=== PATIENT | female | born 1990 ===

== ENCOUNTER 2019-12-07 04:05 | Inpatient (IN) | payer OTHER ==
[2019-12-07 17:29] VITALS: BMI 36.5
[2019-12-07] MEDS ORDERED: LACTATED RINGERS SOLUTION 1,000 ML IV SCH (18:15)
--- NOTE | 2019-12-07 18:41 | HP ---
Past Medical History - Admission History Source: Patient Limitations to Obtaining History: No Limitations - Past Medical History ...: 1 ...Para: 0 ...Term: 0 ...: 0 ...Spon : 0 ...Induced : 0 ...Living Children: 0 ...Multiple Gestation: 0 ...LMP: 03/09/19 ... Weeks Gestation by Dates: 39.0 ...EDC by Dates: 12/14/19 ...EDC by Sono: 12/10/19 - Past Surgical History Past Surgical History: Yes: None Hx Myomectomy: No Hx Transabdominal Cerclage: No - Smoking History Smoking history: Never smoked Have you smoked in the past 12 months: No - Alcohol/Substance Use Hx Alcohol Use: No - Social History History of Recent Travel: No Home Medications - Allergies Allergies/Adverse Reactions: Allergies Allergy/AdvReac Type Severity Reaction Status Date / Time No Known Allergies Allergy Verified 12/07/19 17:00 - Home Medications Home Medications: Ambulatory Orders Ascorbate Calcium [Vitamin C] 500 mg PO DAILY 12/07/19 Pnv No.95/Ferrous Fum/Folic AC [ Vitamin Tablet] 1 each PO DAILY 12/07/19 Review of Systems - Review of Systems Constitutional: reports: No Symptoms Cardiovascular: reports: No Symptoms Respiratory: reports: No Symptoms Gastrointestinal: reports: No Symptoms Genitourinary: reports: No Symptoms Physical Exam - Maternity Constitutional: Yes: Well Nourished Cardiovascular: Yes: WNL Lungs: Clear to auscultation - Abdominal Exam/OB Fundal Height: 39 Number of Fetuses: Single Presentation: Vertex Contractions: Yes Regularity: Irregular Intensity: Unaware Monitor Mode: External Heart Rate (range): 140 Category: I Accelerations: Uniform Decelerations: None - Vaginal Exam/OB Vaginal Bleeding: No Dilatation (cm): 0.5 Effacement (%): 40 Amniotic Membrane Status: Intact Presentation: Vertex/Position Station: -3 - Physical Exam Extremities: Yes: WNL Hemorrhage Risk Assessment - Risk Factors Medium Risk Factors: Yes: None High Risk Factors: Yes: None Risk Score: 1 Risk Level: Medium Risk Problem List - Problems (1) with 39 completed weeks gestation Code(s): Z3A.39 - 39 WEEKS GESTATION OF Assessment/Plan 29yo @39w0d, placental lakes in early , IOL r/o IUGR,GBS Negative Admit to labor and delivery IV-LR labs Informed consent including possibility of an blood transfusion.Patient understands, agrees an verbalized understanding cervidil anticipate vaginal delivery
[2019-12-07 18:55] LABS: BASO % 0.1 % (0-2.0); EOS % 2.2 % (0-4.5); HEMATOCRIT 36.3 % (32.4-45.2); HEMOGLOBIN 11.8 GM/dL (10.7-15.3); LYMPH % 15.5 % (8-40); MCH 25.9 pg (25.7-33.7); MCHC 32.6 g/dl (32.0-36.0); MEAN CELL VOLUME 79.4 fl (80-96); MEAN PLT VOLUME 7.4 fl (7.5-11.1); MONO % 8.7 % (3.8-10.2); NEUT % 73.5 % (42.8-82.8); PLATELET COUNT 348 K/MM3 (134-434); RBC 4.57 M/mm3 (3.60-5.2); RDW 16.7 % (11.6-15.6); WHITE BLOOD COUNT 9.7 K/mm3 (4.0-10.0)
[2019-12-07 19:03] LABS: INR 0.93 (0.83-1.09)
[2019-12-07 19:06] LABS: ACTIVATED PTT 26.1 SECONDS (25.2-36.5)
[2019-12-07 19:18] LABS: BLOOD UREA NITROGEN 12.7 mg/dL (7-18); CALCIUM 9.6 mg/dL (8.5-10.1); CREATININE 0.4 mg/dL (0.55-1.3); POTASSIUM 4.2 mmol/L (3.5-5.1)
[2019-12-07] MEDS ORDERED: DINOPROSTONE 10 MG VAGINAL SUPPOSITORY VG ONE (19:32)
[2019-12-07] MEDS: ELECTROLYTE-148 SOLN 1,000 ML IV SCH (22:00)
[2019-12-08] MEDS ORDERED: BUTORPHANOL TARTRATE 2 MG/ML VIAL ONE ×2 (00:03→20:34)
[2019-12-08 09:35] LABS: ALBUMIN 2.4 g/dl (3.4-5.0); BILIRUBIN,TOTAL 0.6 mg/dL (0.2-1); BLOOD UREA NITROGEN 8.2 mg/dL (7-18); CALCIUM 9.1 mg/dL (8.5-10.1); CREATININE 0.5 mg/dL (0.55-1.3); POTASSIUM 4.1 mmol/L (3.5-5.1)
[2019-12-08] MEDS ORDERED: DINOPROSTONE 10 MG VAGINAL SUPPOSITORY VG ONE (13:01)
--- NOTE | 2019-12-08 13:06 | PD.OB.PROG ---
Past Medical History - Primary Care Physician PCP:: Carlton Donald Documenting Provider Type: Laborist - Admission Chief Complaint: contractions History of Present Illness: 38 y/o admitted by [facility] yesterday for iol at 39 weeks due to suspected iugr History Source: Patient Limitations to Obtaining History: No Limitations - Nursing Documentation Maternal Triage Index: Maternal Triage Index ( Priority 5, Requesting MFTI) Hemorrhage Risk Assessment: Risk Level Low Risk High Level Risk Factors for None Hemorrhage Medium Level Risk Factors for None of the above Hemorrhage Low Level Risk Factors for No previous uterine incis,[place], Hemorrhage Four (4) or less previous,No known bleeding,No history of PPH Nursing Documentation Reviewed: Yes - Past Medical History ...: 1 ...Para: 0 ...Term: 0 ...: 0 ...Spon : 0 ...Induced : 0 ...Living Children: 0 ...Multiple Gestation: 0 ...LMP: 03/09/19 ... Weeks Gestation by Dates: 39.0 ...EDC by Dates: 12/14/19 ...EDC by Sono: 12/10/19 - Past Surgical History Past Surgical History: Yes: None - Smoking History Smoking history: Never smoked Have you smoked in the past 12 months: No - Alcohol/Substance Use Hx Alcohol Use: No - Social History History of Recent Travel: No Physical Exam - Obstetrical Vital Signs: Vital Signs Temperature 98.2 F 12/08/19 12:00 Pulse Rate 96 H 12/08/19 12:00 Respiratory Rate 18 12/08/19 12:00 Blood Pressure 107/72 12/08/19 12:00 O2 Sat by Pulse Oximetry (%) - Abdominal Exam/OB Number of Fetuses: Single Contractions: Yes Regularity: Irregular Intensity: Mild Heart Rate (range): 140 Category: I Accelerations: Uniform Decelerations: None - Vaginal Exam/OB Dilatation (cm): 1 Effacement (%): l/p - Labs Lab Results: CBC, BMP 12/07/19 18:10 12/08/19 08:01 Assessment/Plan cervical ripening request by PMD to place 2nd cervidil inserted at this time cont close monitoring sign out to MD conduit mechanic
[2019-12-08] MEDS ORDERED: PROMETHAZINE HCL 25 MG/1 ML VIAL ONE (20:34)
[2019-12-08] MEDS ORDERED: BUTORPHANOL TARTRATE 1 MG/ML VIAL IVPB ONE ×2 (20:45)
[2019-12-08] MEDS ORDERED: BUTORPHANOL TARTRATE 2 MG/ML VIAL IVPB ONE ×2 (20:45)
[2019-12-08] MEDS ORDERED: PROMETHAZINE HCL 25 MG/1 ML VIAL IVPB ONE (20:45)
[2019-12-08] MEDS: ELECTROLYTE-148 SOLN 1,000 ML IV SCH (22:45)
[2019-12-09] MEDS ORDERED: FENTANYL/BUPIVACAINE/NS/PF - PCEA - 50 ML DISP.SYRIN EP ONE ×3 (02:45→10:11)
[2019-12-09] MEDS ORDERED: BUPIVACAINE HCL/PF 0.25% (2.5MG/ML) 10 ML VIAL ONE (02:55)
--- NOTE | 2019-12-09 03:11 | PN ---
Progress Note (short form) - Note Progress Note: Full term gestation on cervidil induction VSS, afebrile EFM - Baseline 140/in, moderate variability, accelerations, no decelerations Tocos - q4 Pelvic 2cm/80%/-2/vertex. Spontaneous rupture of membranes. Plan - Full term gestation on cervidil ripening Anticipate vaginal delivery
[2019-12-09] MEDS: FENTANYL/BUPIVACAINE/NS/PF - PCEA - 50 ML DISP.SYRIN EP SCH (03:15)
[2019-12-09] MEDS ORDERED: OXYTOCIN 30 UNITS in 0.9% NS 30 UNIT/500 ML INFUS.BAG IVPB SCH (03:15)
[2019-12-09] MEDS ORDERED: NALOXONE HCL 0.4 MG/ML VIAL IVPUSH PRN (03:19)
--- NOTE | 2019-12-09 03:23 | PN ---
Progress Note (short form) - Note Progress Note: Patient complaining of lower abdominal pain VSS, afebrile EFM - Baseline 140/min, moderate variability, acceleration. no deceleration Tocos q3 Pelvic - 4cm/90%/-1/vertex Plan - full term gestation in labor Epidural analgesia performed Anticipate vaginal dilvery
[2019-12-09] MEDS ORDERED: OXYTOCIN 30 UNITS in 0.9% NS 30 UNIT/500 ML INFUS.BAG IVPB ONE (04:33)
[2019-12-09] MEDS ORDERED: PCA PUMP NR ONE (07:27)
[2019-12-09] MEDS ORDERED: OXYTOCIN 20 UNITS in 0.9% NS 20 UNIT/1,000 ML INFUS.BAG IV ONE ×2 (10:11→13:55)
--- NOTE | 2019-12-09 11:52 | PN ---
Progress Note (short form) - Note Progress Note: Patient comfortable on epidural analgesia Vss, afebrile EFM - Baseline 140/min, moderate variability, accelerations, no decelerations Tocos - q3 min Pelvic - 9cm/100%/0/vertex Plan - Full term gestation approaching second stage labor Anticipate vaginal delivery.
[2019-12-09] MEDS: OXYTOCIN 20 UNITS in 0.9% NS 20 UNIT/1,000 ML INFUS.BAG IV SCH ×2 (12:44→14:15)
[2019-12-09] MEDS ORDERED: CEFAZOLIN 2 GM/D5W 2 GM/50 ML ML IVPB ONE (12:54)
[2019-12-09] MEDS ORDERED: ceFAZolin 2 GRAM PREMIX BAG IVPB ONE (12:55)
[2019-12-09 13:24] LABS: CORD BASE EXCESS -7.1 mmol/L (0-2); CORD HCO3 19.8 mmHg (20-29); CORD PCO2 44.8 mmHg (30-78); CORD pH 7.264 (7.14-7.44)
[2019-12-09 13:27] LABS: CORD HCO3 23.7 mmHg (20-29); CORD PCO2 64.9 mmHg (30-78)
[2019-12-09] MEDS ORDERED: METHYLERGONOVINE MALEATE 0.2 MG/1 ML AMP IM PRN (13:41)
[2019-12-09] MEDS ORDERED: BENZOCAINE 28 GM HEMORRHOIDAL OINTMENT TP PRN (13:41)
[2019-12-09] MEDS ORDERED: BENZOCAINE 20% 57 GM BOTTLE TP PRN (13:41)
[2019-12-09] MEDS ORDERED: WITCH HAZEL 50% (TUCKS) 40 PAD/JAR PAD TP PRN (13:41)
--- NOTE | 2019-12-09 13:41 | PN ---
Delivery - Delivery Vaginal Delivery: Spontaneous Type of Anesthesia: Local, Epidural Episiotomy/Laceration: Right Mediolateral, 1st degree EBL (cc): 300 Delivery, Single - Stages of Labor Date 1st Stage Initiatied: 12/09/19 Time 1st Stage Initiated: 02:00 Date 2nd Stage Initiated: 12/09/19 Time 2nd Stage Initiated: 12:15 Date of Delivery: 12/09/19 Time of Delivery: 12:32 Time Placenta Delivered: 12:44 - Condition of Process Trainer/Religious Healer Present: No Infant Gender: Female Position: Left, OA Total Hours ROM (Hrs/Mins): 17hrs 14min - 1 Minute Total Score: 9 5 Minutes Total Score: 9 - [place] Feeding Plan Initial Plan: Elected not to breastfeed exclusively throughout hospitalization
[2019-12-09] MEDS ORDERED: IBUPROFEN 600 MG TABLET (FP) PO ONE (14:29)
[2019-12-09] MEDS ORDERED: ACETAMINOPHEN 325 MG TABLET (FP) ONE (14:29)
[2019-12-09] MEDS: ACETAMINOPHEN 325 MG TABLET (FP) PO PRN (14:30)
[2019-12-09] MEDS: IBUPROFEN 600 MG TABLET (FP) PO PRN (14:30)
[2019-12-10] MEDS: ACETAMINOPHEN 325 MG TABLET (FP) PO PRN ×2 (01:29→09:47)
[2019-12-10] MEDS: IBUPROFEN 600 MG TABLET (FP) PO PRN ×2 (01:30→09:47)
[2019-12-10 08:44] LABS: BASO % 0.1 % (0-2.0); EOS % 1.7 % (0-4.5); HEMOGLOBIN 9.8 GM/dL (10.7-15.3); LYMPH % 16.3 % (8-40); MCH 25.7 pg (25.7-33.7); MCHC 32.6 g/dl (32.0-36.0); MEAN CELL VOLUME 78.9 fl (80-96); MEAN PLT VOLUME 7.2 fl (7.5-11.1); MONO % 6.9 % (3.8-10.2); PLATELET COUNT 307 K/MM3 (134-434); RDW 16.8 % (11.6-15.6); WHITE BLOOD COUNT 13.9 K/mm3 (4.0-10.0)
[2019-12-10] MEDS: PRENATAL VITAMINS W/ FOLIC ACID TABLET (FP) PO SCH (09:46)
[2019-12-10] MEDS: DOCUSATE SODIUM 100 MG CAPSULE (FP) PO SCH (09:47)
[2019-12-10] MEDS: FENTANYL/BUPIVACAINE/NS/PF - PCEA - 50 ML DISP.SYRIN EP SCH (12:29)
--- NOTE | 2019-12-10 12:59 | PN ---
Post Progress Note Post Day: 1 Type of Delivery: Vital Signs: Vital Signs Temperature 97.6 F 12/10/19 10:00 Pulse Rate 105 H 12/10/19 10:00 Respiratory Rate 18 12/10/19 10:00 Blood Pressure 106/74 12/10/19 10:00 O2 Sat by Pulse Oximetry (%) 99 12/09/19 14:45 Breast Exam: Yes: Soft Uterus: Yes: Fundus Firm, Fundus below umbilicus, Non-tender Abdomen/GI: Yes: Abdomen soft, Tolerating PO Lochia: Yes: Rubra Lochia, amount: Small Extremities: Yes: Calves non-tender Perineum: Yes: Episiotomy Activity: Ambulating - Labs Labs: CBC WBC 13.9 K/mm3 (4.0-10.0) H 12/10/19 08:00 RBC 3.80 M/mm3 (3.60-5.2) 12/10/19 08:00 Hgb 9.8 GM/dL (10.7-15.3) L 12/10/19 08:00 Hct 30.0 % (32.4-45.2) L D 12/10/19 08:00 MCV 78.9 fl (80-96) L 12/10/19 08:00 MCH 25.7 pg (25.7-33.7) 12/10/19 08:00 MCHC 32.6 g/dl (32.0-36.0) 12/10/19 08:00 RDW 16.8 % (11.6-15.6) H 12/10/19 08:00 Plt Count 307 K/MM3 (134-434) 12/10/19 08:00 MPV 7.2 fl (7.5-11.1) L 12/10/19 08:00 Absolute Neuts (auto) 10.4 K/mm3 (1.5-8.0) H 12/10/19 08:00 Neutrophils % 75.0 % (42.8-82.8) 12/10/19 08:00 Lymphocytes % 16.3 % (8-40) 12/10/19 08:00 Monocytes % 6.9 % (3.8-10.2) 12/10/19 08:00 Eosinophils % 1.7 % (0-4.5) 12/10/19 08:00 Basophils % 0.1 % (0-2.0) 12/10/19 08:00 Nucleated RBC % 0 % (0-0) 12/10/19 08:00 Assessment/Plan S/P , ppd # 1, with no complaints Continue management.
[2019-12-10] MEDS: FERROUS SO4 325 MG TABLET (FP) PO SCH ×2 (15:02→21:42)
[2019-12-10] MEDS ORDERED: SENNOSIDES/DOCUSATE COMBO (SENNA PLUS) TABLET (UD) PO PRN (22:00)
--- NOTE | 2019-12-11 08:05 | PN ---
Post Progress Note Post Day: 2 Type of Delivery: Vital Signs: Vital Signs Temperature 98 F 12/10/19 22:00 Pulse Rate 104 H 12/10/19 22:00 Respiratory Rate 18 12/10/19 22:00 Blood Pressure 138/80 12/10/19 22:00 O2 Sat by Pulse Oximetry (%) 99 12/09/19 14:45 Breast Exam: Yes: Soft Uterus: Yes: Fundus Firm, Fundus below umbilicus, Non-tender Abdomen/GI: Yes: Abdomen soft, Tolerating PO Lochia: Yes: Rubra Lochia, amount: Small Extremities: Yes: Calves non-tender Perineum: Yes: Episiotomy Activity: Ambulating - Labs Labs: CBC WBC 13.9 K/mm3 (4.0-10.0) H 12/10/19 08:00 RBC 3.80 M/mm3 (3.60-5.2) 12/10/19 08:00 Hgb 9.8 GM/dL (10.7-15.3) L 12/10/19 08:00 Hct 30.0 % (32.4-45.2) L D 12/10/19 08:00 MCV 78.9 fl (80-96) L 12/10/19 08:00 MCH 25.7 pg (25.7-33.7) 12/10/19 08:00 MCHC 32.6 g/dl (32.0-36.0) 12/10/19 08:00 RDW 16.8 % (11.6-15.6) H 12/10/19 08:00 Plt Count 307 K/MM3 (134-434) 12/10/19 08:00 MPV 7.2 fl (7.5-11.1) L 12/10/19 08:00 Absolute Neuts (auto) 10.4 K/mm3 (1.5-8.0) H 12/10/19 08:00 Neutrophils % 75.0 % (42.8-82.8) 12/10/19 08:00 Lymphocytes % 16.3 % (8-40) 12/10/19 08:00 Monocytes % 6.9 % (3.8-10.2) 12/10/19 08:00 Eosinophils % 1.7 % (0-4.5) 12/10/19 08:00 Basophils % 0.1 % (0-2.0) 12/10/19 08:00 Nucleated RBC % 0 % (0-0) 12/10/19 08:00 Assessment/Plan S/P , PPd # 2, stable Discharge home today.
--- NOTE | 2019-12-11 08:08 | DS ---
Physical Exam-REEL WORKER Vital Signs: Vital Signs Temperature 98 F 12/10/19 22:00 Pulse Rate 104 H 12/10/19 22:00 Respiratory Rate 18 12/10/19 22:00 Blood Pressure 138/80 12/10/19 22:00 O2 Sat by Pulse Oximetry (%) 99 12/09/19 14:45 Constitutional: Yes: Well Nourished Eyes: Yes: WNL HENT: Yes: WNL Neck: Yes: WNL Cardiovascular: Yes: WNL Respiratory: Yes: WNL Gastrointestinal: Yes: WNL ...Rectal Exam: Yes: WNL Renal/: Yes: WNL Pelvis: Yes: WNL External Genitalia: Yes: Normal Vaginal Exam: Yes: Normal Cervix: Yes: Normal Uterus: Yes: Normal Adnexa: Normal: Bilateral ....Post : Yes: Uterus firm Breast(s): Yes: WNL Musculoskeletal: Yes: WNL Extremities: Yes: WNL Edema: No Integumentary: Yes: WNL Wound/Incision: Yes: Clean/Dry Neurological: Yes: WNL ...Motor Strength: WNL Psychiatric: Yes: WNL Labs: CBC, BMP 12/10/19 08:00 12/08/19 08:01 Delivery - Delivery Vaginal Delivery: Spontaneous Type of Anesthesia: Local, Epidural Episiotomy/Laceration: Right Mediolateral, 1st degree EBL (cc): 300 Delivery, Single - Stages of Labor Date 1st Stage Initiatied: 12/09/19 Time 1st Stage Initiated: 02:00 Date 2nd Stage Initiated: 12/09/19 Time 2nd Stage Initiated: 12:15 Date of Delivery: 12/09/19 Time of Delivery: 12:32 Time Placenta Delivered: 12:44 - Condition of Infant Electric Well Logging Operator/Computer Numeric Control Setter Present: No Infant Gender: Female Weight: 2.693 kg Position: Left, OA Total Hours ROM (Hrs/Mins): 17hrs 14min - 1 Minute Total Score: 9 5 Minutes Total Score: 9 - [place] Feeding Plan Initial Plan: Elected not to breastfeed exclusively throughout hospitalization Discharge Summary Problems reviewed: Yes Reason For Visit: INDUCTION OF LABOR Current Active Problems with 39 completed weeks gestation (Acute) Condition: Stable - Instructions Disposition: HOME - Home Medications Comprehensive Discharge Medication List: Ambulatory Orders Ascorbate Calcium [Vitamin C] 500 mg PO DAILY 12/07/19 Pnv No.95/Ferrous Fum/Folic AC [ Vitamin Tablet] 1 each PO DAILY 12/07/19
[2019-12-11] MEDS: DOCUSATE SODIUM 100 MG CAPSULE (FP) PO SCH (09:31)
[2019-12-11] MEDS: FERROUS SO4 325 MG TABLET (FP) PO SCH (09:31)
[2019-12-11] MEDS: PRENATAL VITAMINS W/ FOLIC ACID TABLET (FP) PO SCH (09:31)
[2019-12-11 10:17] VITALS: BP 118/77; PULSE 94; TEMP 98.4
--- NOTE | 2019-12-14 18:43 | PATH ---
Surgical Pathology Report Patient Name: KIKI DAILY [facility]. Rec. #: [id number] /Age/Gender: 1990 (Age: 29) / F Account: [id number] Location: [facility] OBS/SWAMPER Taken: 12/09/2019 Received: 12/11/2019 Reported: 12/14/2019 Physicians: Carlton Cohen M.D. Specimen(s) Received PLACENTA Clinical History , IUGR Final Diagnosis PLACENTA, DELIVERY: 338 G THIRD TRIMESTER MARKEDLY DISRUPTED PLACENTA, TRIVASCULAR UMBILICAL CORD WITH VASCULAR CONGESTION AND HEMORRHAGE, AND UNREMARKABLE PLACENTAL MEMBRANES. Electronically Signed Silvia Tineo M.D. Gross Description The specimen is received fresh labeled placenta and is a 338 gram aggregate of 2 separate portions of a markedly torn and disrupted placenta. The placenta measures 20.0 x 14.0 x 2.5 cm in aggregate. The attached membranes are goodman and translucent with focal opacities. The membranes insert marginally. The umbilical cord is separately received within the same container. The umbilical cord measures 18 cm in length and averages 0.9 cm in diameter. The cord appears to have inserted eccentrically, 2.5 cm to the nearest margin. The umbilical cord is keys purple and dusky. No true knots or strictures are identified. Cut surface of the umbilical cord reveals 3 vessels. The surface is chapman-blue with minimal fibrin deposition and appropriate caliber vessels. The maternal surface is red-brown, markedly fragmented and disrupted. Sectioning reveals red-brown, spongy parenchyma. No lesions are identified. Fire Alarm Operator sections are submitted in three cassettes as follows: 1- membrane rolls and umbilical cord; 2-3- full thickness sections of placenta. /12/13/2019 [facility]/12/13/2019
== END 2019-12-11 18:31 | disposition home or self-care (01) | DRG 560 ==
LOC: JLDR 04:05 → J3W 12-09 15:10
PROVIDERS: ADMIT Obstetrics & Gynecology; ATTEND Obstetrics & Gynecology
PROC: 10E0XZZ Delivery of Products of Conception, External Approach (ICD-10-PCS; principal; 2019-12-09)
PROC: 0W8NXZZ Division of Female Perineum, External Approach (ICD-10-PCS; 2019-12-09)
PROC: 3E0P7VZ Introduction of Hormone into Female Reproductive, Via Natural or Artificial Opening (ICD-10-PCS; 2019-12-09)
PROC: 0HQ9XZZ Repair Perineum Skin, External Approach (ICD-10-PCS; 2019-12-09)
DX: O36.5930 Maternal care for other known or suspected poor fetal growth, third trimester, not applicable or unspecified (principal); O70.0 First degree perineal laceration during delivery; O69.81X0 Labor and delivery complicated by cord around neck, without compression, not applicable or unspecified; O69.89X0 Labor and delivery complicated by other cord complications, not applicable or unspecified; Z3A.39 39 weeks gestation of pregnancy; Z37.0 Single live birth
CPT/HCPCS: 36415; 36600; 59409; 80048; 80053; 82803; 85025; 85610; 85730; 86780; 86850; 86900; 86901; 87389; 88307-TC; U0003

== ENCOUNTER 2022-12-18 11:40 | Emergency (ER) | payer OTHER ==
[2022-12-18 11:52] VITALS: BP 107/64; PULSE 87; RESP 16; TEMP 98.5; BMI 35.5
[2022-12-18] MEDS ORDERED: SODIUM CHLORIDE 1,000 ML IV ONE (12:13)
[2022-12-18 12:42] LABS: BASO % 0.3 % (0-2.0); EOS % 2.5 % (0-4.5); HEMATOCRIT 41.5 % (32.4-45.2); HEMOGLOBIN 13.5 GM/dL (10.7-15.3); LYMPH % 21.9 % (8-40); MCH 25.6 pg (25.7-33.7); MCHC 32.6 g/dl (32.0-36.0); MEAN CELL VOLUME 78.3 fl (80-96); MEAN PLT VOLUME 7.8 fl (7.5-11.1); MONO % 6.3 % (3.8-10.2); PLATELET COUNT 398 10^3/uL (134-434); RDW 13.8 % (11.6-15.6); WHITE BLOOD COUNT 8.6 K/mm3 (4.0-10.0)
[2022-12-18 12:57] LABS: POTASSIUM 4.1 mmol/L (3.5-5.1)
[2022-12-18 12:58] LABS: CALCIUM 9.4 mg/dL (8.5-10.1); HCG,QUALITATIVE URINE Positive
[2022-12-18 12:59] LABS: BLOOD UREA NITROGEN 10.5 mg/dL (7-18)
[2022-12-18 13:02] LABS: CREATININE 0.7 mg/dL (0.55-1.3)
[2022-12-18 13:14] LABS: URINE APPEARANCE Clear; URINE BILIRUBIN Negative (NEGATIVE); URINE GLUCOSE (UA) Trace (NEGATIVE); URINE KETONE Negative (NEGATIVE); URINE LEUK ESTERASE Negative (NEGATIVE); URINE NITRITE Negative (NEGATIVE); URINE PROTEIN 3+ (NEGATIVE); URINE UROBILINOGEN 0.2 mg/dL (0.2-1.0)
[2022-12-18 13:44] LABS: EPI CELLS 5.3 /uL (0-25.1); HYALINE CASTS 0 /uL (0-3.1); URINE BACTERIA 33.2 /uL (0-1359); URINE RBC 34495.5 /uL (0-23.9); URINE WBC 9.2 /uL (0-25.8)
== END 2022-12-18 14:43 | disposition home or self-care (01) ==
LOC: JER 11:40
PROC: 3E0337Z Introduction of Electrolytic and Water Balance Substance into Peripheral Vein, Percutaneous Approach (ICD-10-PCS; principal; 2022-12-18)
DX: O03.9 Complete or unspecified spontaneous abortion without complication (principal); Z3A.10 10 weeks gestation of pregnancy
CPT/HCPCS: 36415; 76817-TC; 80048; 81003; 84702; 84703; 85025; 86850; 86900; 86901; 87086; 99284-25